=== PATIENT | female | born 1985 | race African-American/Black ===

== ENCOUNTER 2017-06-13 18:59 | Emergency (ER) | payer SELFPAY ==
[~2017-06-13 18:59] MED LIST: LABE100 PO; PREN1TAB30 PO; RANI150 PO; ZOFR4TAB3 SL
[2017-06-13 19:01] VITALS: BP 140/90; PULSE 88; RESP 16; TEMP 98.6; O2SAT 100
== END 2017-06-13 22:40 | disposition left against medical advice (07) ==
LOC: NED 18:59
DX: R55 Syncope and collapse (principal); Z53.21 Procedure and treatment not carried out due to patient leaving prior to being seen by health care provider
CPT/HCPCS: 99281

== ENCOUNTER 2017-11-10 15:51 | Emergency (ER) | payer SELFPAY ==
[~2017-11-10] VITALS: Ht 185.4 cm; Wt 80.0 kg
[2017-11-10 15:56] VITALS: BP 208/90; PULSE 106; RESP 14; TEMP 97.9; O2SAT 98
[2017-11-10] MEDS ORDERED: FAMOTIDINE 20 MG TAB PO ONE (16:30)
[2017-11-10] MEDS ORDERED: diphenhydrAMINE HCL 25 MG CAP PO ONE (16:30)
[2017-11-10] MEDS ORDERED: predniSONE 20 MG TAB PO ONE (16:30)
[2017-11-10] MEDS ORDERED: DIPH25CA PO (16:47)
[2017-11-10] MEDS ORDERED: FAMO1TAB37 PO (16:47)
[2017-11-10] MEDS ORDERED: PRED-503 PO (16:47)
[2017-11-10] MEDS ORDERED: VIST25CA PO (16:47)
--- NOTE | 2017-11-10 16:47 | PD ---
HPI Chief Complaint: Allergic/Adverse Reaction Time Seen by Provider: 16:07 Travel History International Travel<30 days: No Contact w/Intl Traveler<30days: No Traveled to known affect area: No History of Present Illness HPI The patient is a 32-year-old [place] female who presents emergency department for 1 day of lip swelling, facial itching, and itching of the ears. The patient feels like the inside of her ears are hard, pruritic, she also complains of facial itching. She also complains of mild lip swelling and edema. She denies any discomfort in the posterior aspect of the throat, denies any difficulty swallowing or breathing. She denies any wheezing. She denies any recent new medications, denies any known history of allergies. She denies changing any food habits recently. She denies change in facial makeup recently. Symptoms are mild to moderate, slightly alleviated with Benadryl, and there are no known exacerbating factors. PFSH Past Medical History Diminished Hearing: No Hypertension: Yes Psychiatric: No Respiratory: No ?: Unknown : 4 Para: 4 Social History Alcohol Use: Yes (RARE ) Tobacco Use: Yes Substance Use: No Allergies-Medications (Allergen,Severity, Reaction): Coded Allergies: No Known Allergies (Verified Adverse Reaction, Unknown, 11/10/17) Reported Meds & Prescriptions Reported Meds & Active Scripts Active No Active Prescriptions or Reported Medications Review of Systems Except as stated in HPI: all other systems reviewed are Neg HENT: Positive: Other (lip swelling), No: Lightheadedness Cardiovascular: No: Chest Pain or Discomfort Respiratory: No: Shortness of Breath, Wheezing Gastrointestinal: No: Nausea, Vomiting Skin: Positive Itching Physical Exam Narrative GENERAL: Awake, alert, pleasant 32-year-old female who appears her stated age and is in no acute respiratory distress. SKIN: Focused skin assessment warm/dry. HEAD: Atraumatic. Normocephalic. EYES: Pupils equal and round. No scleral icterus. No injection or drainage. ENT: Swelling of the lips is noted with a few urticaria, no visible edema the uvula or tongue. TMs are translucent. EACs are clear. NECK: Trachea midline. No JVD. CARDIOVASCULAR: Regular rate and rhythm. No murmur appreciated. RESPIRATORY: No accessory muscle use. Clear to auscultation. Breath sounds equal bilaterally. No wheezing noted. MUSCULOSKELETAL: No obvious deformities. No clubbing. No cyanosis. No edema. NEUROLOGICAL: Awake and alert. No obvious cranial nerve deficits. Motor grossly within normal limits. Normal speech. PSYCHIATRIC: Appropriate mood and affect; insight and judgment normal. Data Data Last Documented VS Vital Signs Date Time Temp Pulse Resp B/P (MAP) Pulse Ox O2 Delivery O2 Flow Rate FiO2 11/10/17 15:56 97.9 106 14 208/90 (129) 98 Orders Orders Prednisone (Deltasone) (11/10/17 16:30) Famotidine (Pepcid) (11/10/17 16:30) Diphenhydramine (Benadryl) (11/10/17 16:30) Hydroxyzine Pamoate (Vistaril) (11/10/17 16:30) [facility] Medical Decision Making Medical Screen Exam Complete: Yes Emergency Medical Condition: Yes Medical Record Reviewed: Yes Differential Diagnosis Differential diagnosis includes angioedema, allergic reaction, anaphylaxis, food allergy, dermatitis. Narrative Course The patient was administered prednisone, Pepcid, Benadryl, and Vistaril. Vitals are stable, there is no evidence of swelling of the posterior oropharynx or difficulty swallowing. The patient will be discharged home on prednisone, Pepcid, Benadryl, and Vistaril. She is advised to follow-up with her primary physician. Return if symptoms worsen or progress. Diagnosis Primary Impression: Angioedema Qualified Codes: T78.3XXA - Angioneurotic edema, initial encounter Patient Instructions: General Instructions Additional Instructions: Medications as directed. Follow-up with her primary physician. Return if symptoms worsen or progress. Med/Other Pt SpecificInfo: Prescription(s) given Scripts Hydroxyzine Pamoate (Vistaril) 25 Mg Cap 25 MG PO Q6H Y for ITCHING, #20 CAP 0 Refills Prov: Law Floers MD 11/10/17 Diphenhydramine (Diphenhydramine) 25 Mg Cap 25 MG PO Q6H Y for ALLERGIES, #20 CAP 0 Refills Prov: Law Flores MD 11/10/17 Famotidine (Pepcid) 20 Mg Tab 20 MG PO BID for 5 Days, #10 TAB 0 Refills Prov: Law Flores MD 11/10/17 Prednisone (Deltasone) 20 Mg Tab 40 MG PO DAILY for 4 Days, #8 TAB 0 Refills Prov: Law Flores MD 11/10/17 Disposition: 01 DISCHARGE HOME Condition: Stable Law Flores MD Nov 10, 2017 16:47
== END 2017-11-10 17:07 | disposition home or self-care (01) ==
LOC: NEPD 15:51
DX: T78.3XXA Angioneurotic edema, initial encounter (principal); Z72.0 Tobacco use
CPT/HCPCS: 99284; J7512